=== PATIENT | female | born 1960 | race Caucasian/White ===

== ENCOUNTER 2018-07-15 17:58 | Emergency (ER) | payer OTHER ==
[~2018-07-15] VITALS: Ht 162.6 cm; Wt 80.0 kg
[~2018-07-15 17:58] MED LIST: HYDR-569 PO; PANT20TA2 PO
[2018-07-15 18:02] VITALS: BP 173/98
[2018-07-15] MEDS ORDERED: HYDROcodone/acetaminophen 10/325mg tab PO ONE (18:30)
[2018-07-15] MEDS ORDERED: HYDR-565 PO (19:20)
[2018-07-15] MEDS ORDERED: ORPH100T2 PO (19:20)
== END 2018-07-15 19:47 | disposition home or self-care (01) ==
LOC: ER 17:58
DX: S16.1XXA Strain of muscle, fascia and tendon at neck level, initial encounter (principal); S29.011A Strain of muscle and tendon of front wall of thorax, initial encounter; S60.222A Contusion of left hand, initial encounter; I10 Essential (primary) hypertension; Z90.710 Acquired absence of both cervix and uterus; Z88.2 Allergy status to sulfonamides; Z79.899 Other long term (current) drug therapy; V49.88XA Car occupant (driver) (passenger) injured in other specified transport accidents, initial encounter; Y93.89 Activity, other specified; Y92.413 State road as the place of occurrence of the external cause; Y99.9 Unspecified external cause status
CPT/HCPCS: 71045; 99283